=== PATIENT | male | born 1975 | race Two or more races ===

== ENCOUNTER 2022-01-11 15:20 | Emergency (ER) | payer SELFPAY ==
[~2022-01-11] VITALS: Ht 170.2 cm; Wt 85.0 kg
[2022-01-11 16:26] VITALS: BP 122/77
[2022-01-11] MEDS ORDERED: HYDROcodone-ACET 7.5/325MG TAB PO ONE (17:00)
[2022-01-11] MEDS ORDERED: HYDR-4798 PO (17:07)
== END 2022-01-11 17:23 | disposition home or self-care (01) ==
LOC: ER 15:20
DX: S62.600D Fracture of unspecified phalanx of right index finger, subsequent encounter for fracture with routine healing (principal); S62.602D Fracture of unspecified phalanx of right middle finger, subsequent encounter for fracture with routine healing; G89.4 Chronic pain syndrome; K21.9 Gastro-esophageal reflux disease without esophagitis; Z79.899 Other long term (current) drug therapy; W23.0XXD Caught, crushed, jammed, or pinched between moving objects, subsequent encounter